=== PATIENT | female | born 1965 ===

== ENCOUNTER 2021-11-20 09:50 | Emergency (ER) | payer SELFPAY ==
[2021-11-20] MEDS ORDERED: KETOROLAC 10 MG TAB PO ONE (13:50)
[2021-11-20] MEDS ORDERED: oxyCODONE /ACETAMINOPHEN 5-325MG TAB PO ONE (13:50)
[2021-11-20] MEDS ORDERED: NEOMY 3.5 MG/BACIT 400 UNITS/POLY B 5000 UNITS/GM OINT PACKET TP ONE (13:50)
--- NOTE | 2021-11-20 14:17 | Emergency Department Report ---
- General Chief Complaint: Wound/Laceration Stated Complaint: ELBOW INJURY Time Seen by Provider: 11/20/21 12:37 Source: patient Mode of arrival: Ambulatory Limitations: No Limitations - History of Present Illness Initial Comments: 56-year-old white female presents to the emergency department for evaluation of right elbow pain. She [place], [place] and scraped up her right elbow. She states that she has been having pain and intermittent bleeding from area since then. States that she has been able to move it around. -: Sudden, Last night Extremity Location: Right: Elbow Place: other Context: accidental (Airport) Associated Symptoms: pain Treatments Prior to Arrival: bandage - Related Data Previous Rx's Medication Instructions Recorded Last Taken Type Mupirocin [Bactroban 2%] 1 applic TP BID #1 tube 11/20/21 Unknown Rx Naproxen [Naprosyn] 500 mg PO BID #14 tab 11/20/21 Unknown Rx Sulfamethoxazole/Trimethoprim 1 each PO BID 7 Days #14 tab 11/20/21 Unknown Rx [Bactrim DS TAB] Allergies Allergy/AdvReac Type Severity Reaction Status Date / Time No Known Allergies Allergy Verified 11/20/21 14:07 ED Review of Systems ROS: Stated complaint: ELBOW INJURY Other details as noted in HPI Comment: All other systems reviewed and negative Constitutional: denies: chills, fever Respiratory: denies: shortness of breath Cardiovascular: denies: chest pain, palpitations Gastrointestinal: abdominal pain. denies: nausea, vomiting Skin: other (Open wound right elbow) Neurological: denies: headache, weakness ED Past Medical Hx - Medications Home Medications: Home Medications Medication Instructions Recorded Confirmed Last Taken Type Mupirocin [Bactroban 2%] 1 applic TP BID #1 tube 11/20/21 Unknown Rx Naproxen [Naprosyn] 500 mg PO BID #14 tab 11/20/21 Unknown Rx Sulfamethoxazole/Trimethoprim 1 each PO BID 7 Days #14 tab 11/20/21 Unknown Rx [Bactrim DS TAB] ED Physical Exam - General Limitations: No Limitations General appearance: alert, in no apparent distress - Head Head exam: Present: atraumatic, normocephalic - Eye Eye exam: Present: normal appearance. Absent: conjunctival injection - Neck Neck exam: Present: normal inspection - Respiratory Respiratory exam: Absent: respiratory distress - Cardiovascular Cardiovascular Exam: Present: regular rate - GI/Abdominal GI/Abdominal exam: Absent: distended, tenderness - Expanded Upper Extremity Exam Right Elbow exam: Present: full ROM, tenderness, abrasion, erythema, other (Open wound circular and 2-1/2 cm in diameter noted with minimal erythema and small amount of purulent drainage noted.). Absent: swelling, laceration, deformity, crepid us, dislocation, tenderness over radial head Forearm Wrist exam: Present: normal inspection Hand Wrist exam: Present: normal inspection Vascular: Present: normal capillary refill, radial pulse. Absent: vascular compromise, Pallo - Back Exam Back exam: Present: normal inspection - Neurological Exam Neurological exam: Present: alert, oriented X3 - Psychiatric Psychiatric exam: Present: normal affect, normal mood - Skin Skin exam: Present: warm, dry, normal color ED Course Vital Signs 11/20/21 11:17 Temperature 98.0 F Pulse Rate 71 Blood Pressure 132/61 [Right] O2 Sat by Pulse 98 Oximetry ED Medical Decision Making - Medical Decision Making 56-year-old white female presents to the emergency department for evaluation of right elbow pain. She states that [place] the airport [place], she fell and scraped up her right elbow. She states that she has been having pain and intermittent bleeding from area since then. States that she has been able to move it around. Right elbow wound cleansed and dressed with Neosporin and new dressing. Patient refused elbow and Tdap shot. Patient was treated with Ancef 1 g IM, Percocet, and Toradol while in the emergency department and discharged home on 7-day course of Bactrim, naproxen, and Bactroban ointment to use twice a day. She is advised to use medications as directed and follow-up with her primary care provider if no improvement or worsening symptoms. She is advised to return to the emergency department immediately if she develops fever or any signs of infection. She verbalizes understanding of and agreement with plan of care. Critical care attestation.: If time is entered above; I have spent that time in minutes in the direct care of this critically ill patient, excluding procedure time. ED Disposition Clinical Impression: Wound, open, elbow Qualifiers: Encounter type: initial encounter Laterality: right Qualified Code(s): S51.001A - Unspecified open wound of right elbow, initial encounter Disposition: 01 HOME / SELF CARE / HOMELESS Is pt being admited?: No Does the pt Need Aspirin: No Condition: Stable Instructions: Wound Care, Adult Additional Instructions: Take medications as prescribed. Follow-up with your primary care provider if no improvement or worsening symptoms. Return to emergency department immediately if you develop fever or any signs of infection. Prescriptions: Sulfamethoxazole/Trimethoprim [Bactrim DS TAB] 1 each PO BID 7 Days #14 tab Mupirocin [Bactroban 2%] 1 applic TP BID #1 tube Naproxen [Naprosyn] 500 mg PO BID #14 tab Referrals: LOW LANDA MD [Staff Physician] - 3-5 Days Forms: Work/School Release Form(ED) Time of Disposition: 14:16
[2021-11-20 14:44] VITALS: BP 128/65
== END 2021-11-20 14:43 | disposition home or self-care (01) ==
LOC: ED 09:50
DX: S51.001A Unspecified open wound of right elbow, initial encounter (principal); X58.XXXA Exposure to other specified factors, initial encounter; Y93.89 Activity, other specified; Y92.89 Other specified places as the place of occurrence of the external cause; Y99.8 Other external cause status
CPT/HCPCS: 99282; 99283